=== PATIENT | female | born 1980 | race Caucasian/White ===

== ENCOUNTER 2022-10-17 11:52 | Emergency (ER) | payer OTHER ==
[2022-10-17 11:58] VITALS: RESP 18; TEMP 98
--- NOTE | 2022-10-17 12:22 | ED ---
Fall HPI - General Chief Complaint: Fall Stated Complaint: Left Hip Injury, Fall Time Seen by Provider: 10/17/22 12:02 Source: patient, family (sister), RN notes reviewed Mode of arrival: wheelchair - History of Present Illness Initial Comments: Patient is a 42-year-old female presenting to the emergency room with her sister with complaints of a fall and left hip pain from the fall. She advised the triage nurse that she tripped and fell in the yard just prior to her arrival ho wever further investigation revealed that the patient has been drinking and is still currently intoxicated and apparently fell at some time during the night last night. Exact details of the fall cannot be or cold her she is unsure of any loss of consciousness or head trauma though she is adamant she only had her left hip. She denies any pain or injury to any other extremity. She reports painful but full range of motion to the left hip. She has some nausea and vomiting related to alcohol intoxication however she denies any abdominal pain not directly related to vomiting. Patient is evasive and a poor historian but reports no significant past medical history or regular medication usage. Location: abdomen - Related Data Home Medications Medication Instructions Recorded Confirmed No Known Home Medications 10/04/14 10/04/14 Allergies Allergy/AdvReac Type Severity Reaction Status Date / Time Penicillins Allergy Swelling Verified 10/17/22 11:58 Review of Systems ROS Statement: Those systems with pertinent positive or pertinent negative responses have been documented in the HPI. ROS Other: All systems not noted in ROS Statement are negative. Past Medical History Past Medical History: No Reported History History of Any Multi-Drug Resistant Organisms: None Reported Past Surgical History: Orthopedic Surgery Past Psychological History: No Psychological Hx Reported Past Alcohol Use History: None Reported, Occasional Past Drug Use History: None Reported General Exam General appearance: alert, in no apparent distress, appears intoxicated Head exam: Present: atraumatic, normocephalic, normal inspection Eye exam: Present: normal appearance, PERRL, EOMI. Absent: scleral icterus, conjunctival injection, nystagmus, periorbital swelling ENT exam: Present: normal exam, normal oropharynx, mucous membranes moist Neck exam: Present: normal inspection, full ROM. Absent: tenderness Respiratory exam: Present: normal lung sounds bilaterally. Absent: respiratory distress, wheezes, rales, rhonchi, stridor Cardiovascular Exam: Present: normal rhythm, tachycardia, normal heart sounds. Absent: systolic murmur, diastolic murmur, rubs, gallop, clicks GI/Abdominal exam: Present: soft, normal bowel sounds. Absent: distended, tenderness, guarding, rebound, rigid Left Hip exam: Present: full ROM, tenderness. Absent: swelling, abrasion, laceration, deformity, crepitus, dislocation, erythema, external rotation, inte rnal rotation, shortening, pelvic stability Neurovascular tendon exam: Present: no vascular compromise Gait: observed and limited by pain Back exam: Present: normal inspection Neurological exam: Present: alert, CN II-XII intact Expanded Neurological exam: Present: memory loss-recent event Devika Total: 15 Psychiatric exam: Present: other Course Vital Signs 10/17/22 10/17/22 11:54 15:07 Temperature 98.0 F Pulse Rate 136 H 78 Respiratory 18 18 Rate Blood Pressure 137/81 113/76 O2 Sat by Pulse 99 96 Oximetry Medical Decision Making - Medical Decision Making Was pt. sent in by a medical professional or institution ([facility], RN [facility]ENT[facility], urgent care, hospital, or half-way...) When possible be specific @ -No Did you speak to anyone other than the patient for history (EMS, parent, family, police, friend...)? What history was obtained from this source @ -Yes, sister at bedside providing some details regarding presenting illness. Did you review nursing and triage notes (agree or disagree)? Why? @ -I reviewed and agree with nursing and triage notes Were old charts reviewed (outside hosp., previous admission, EMS record, old EKG, old radiological studies, urgent care reports/EKG's, half-way records)? Report findings @ -No old charts were reviewed Differential Diagnosis (chest pain, altered mental status, abdominal pain women, abdominal pain men, vaginal bleeding, weakness, fever, dyspnea, syncope, headache, dizziness, GI bleed, back pain, seizure, CVA, palpatations, mental health, musculoskeletal)? @ -Differential Musculoskeletal Muscular strain, contusion, ligament sprain, fracture, arthritis, septic arthritis, bursitis, cellulitis, muscle spasm, nerve compression, DVT, arterial occlusion, herpes zoster, electrolyte abnormality, tumor.... This is not meant to be in all inclusive list EKG interpreted by me (3pts min.). @ -Sinus tachycardia, ventricular rate 109 bpm, NJ interval 140 ms, QRS duration 83 ms, QT/QTC 313/377 ms, PRT axes 127, 95, 6 X-rays interpreted by me (1pt min.). @ -Left hip and pelvis x-ray: No hip fracture or subluxation. No fracture of the pelvis CT interpreted by me (1pt min.). @ -CT of brain and cervical spine: No acute intracranial process. No mass, hemorrhage or shift. No cervical or spine fracture or subluxation. U/S interpreted by me (1pt. min.). @ -None done What testing was considered but not performed or refused? (CT, X-rays, U/S, labs)? Why? @ -None What meds were considered but not given or refused? Why? @ -None Did you discuss the management of the patient with other professionals (professionals i.e. , PA, RN MENTAL [facility], lab, RT, psych nurse, nephrology social worker, machine whitener, teacher, chief quality officer, caser)? Give summary @ -No Was smoking cessation discussed for >3mins.? @ -No Was critical care preformed (if so, how long)? @ -No Were there social determinants of health that impacted care today? How? (Homelessness, low income, unemployed, alcoholism, drug addiction, transportation, low edu. Level, literacy, decrease access to med. care, custodial, rehab)? @ -No Was there de-escalation of care discussed even if they declined (Discuss DNR or withdrawal of care, Hospice)? DNR status @ -No What co-morbidities impacted this encounter? (DM, HTN, Smoking, COPD, CAD, Cancer, CVA, ARF, Chemo, Hep., AIDS, mental health diagnosis, sleep apnea, morbid obesity)? @ -None Was patient admitted / discharged? Hospital course, mention meds given and route, prescriptions, significant lab abnormalities, going to OR and other pertinent info. @ -2-year-old female presenting to the emergency room with her sister with complaints of a fall and left hip pain from the fall. She advised the triage nurse that she tripped and fell in the yard just prior to her arrival however further investigation revealed that the patient has been drinking and is still currently intoxicated and apparently fell at some time during the night last night. Exact details of the fall cannot be or cold her she is unsure of any loss of consciousness or head trauma though she is adamant she only had her left hip. EKG completed by triaging provider demonstrates sinus tachycardia will give 1 L of IV fluids due to sinus tachycardia. Will give Toradol for pain. Will obtain laboratory studies of CBC, CMP and serum alcohol level. Due to alcohol intoxication and unreliable accounts of the event will obtain CT of the head and cervical spine along with x-ray of the left hip and pelvis. Pain and tachycardia improved with IV hydration and Toradol. Hip and Pelvis without any acute osseous process. CT of the brain and cervical spine without any acute intracranial or cervical spine processes. CBC unremarkable. CMP demonstrates elevated glucose at 244 otherwise no abnormalities including normal renal function. Serum alcohol level elevated but below level requiring hospitalization for intoxication at 91. Patient with local hazmat driver home of her sister at bedside. Advised no indication for any further workup at this time. Questions and concerns answered. Return parameters to the emergency room discussed. Will discharge home in stable condition with her sister escorting her home status post fall with acute alcohol intoxication advising follow-up with primary care provider. Undiagnosed new problem with uncertain prognosis? @ -No Drug Therapy requiring intensive monitoring for toxicity (Heparin, Nitro, Insulin, Cardizem)? @ -No Were any procedures done? @ -No Diagnosis/symptom? @ -Fall Acute, or Chronic, or Acute on Chronic? @ -Acute Uncomplicated (without systemic symptoms) or Complicated (systemic symptoms)? @ -Uncomplicated Side effects of treatment? @ -none Exacerbation, Progression, or Severe Exacerbation] @ -no Poses a threat to life or bodily function? @ -no Diagnosis/symptom? @ -Alcohol intoxication Acute, or Chronic, or Acute on Chronic? @ -Acute Uncomplicated (without systemic symptoms) or Complicated (systemic symptoms)? @ -Uncomplicated Side effects of treatment? @ -none Exacerbation, Progression, or Severe Exacerbation] @ -no Poses a threat to life or bodily function? @ -no Case discussed with Dr. Johnson. - Lab Data Result diagrams: 10/17/22 12:38 10/17/22 12:38 Lab Results 10/17/22 10/17/22 Range/Units 12:38 12:38 WBC 7.0 (3.8-10.6) k/uL RBC 4.88 (3.80-5.40) m/uL Hgb 15.8 (11.4-16.0) gm/dL Hct 44.8 (34.0-46.0) % MCV 91.7 (80.0-100.0) fL MCH 32.3 (25.0-35.0) pg MCHC 35.2 (31.0-37.0) g/dL RDW 12.3 (11.5-15.5) % Plt Count 247 (150-450) k/uL MPV 7.9 Neutrophils % 69 % Lymphocytes % 22 % Monocytes % 6 % Eosinophils % 1 % Basophils % 1 % Neutrophils # 4.9 (1.3-7.7) k/uL Lymphocytes # 1.5 (1.0-4.8) k/uL Monocytes # 0.4 (0-1.0) k/uL Eosinophils # 0.0 (0-0.7) k/uL Basophils # 0.0 (0-0.2) k/uL Sodium 137 (137-145) mmol/L Potassium 4.3 (3.5-5.1) mmol/L Chloride 101 (98-107) mmol/L Carbon Dioxide 25 (22-30) mmol/L Anion Gap 11 mmol/L BUN 8 (7-17) mg/dL Creatinine 0.60 (0.52-1.04) mg/dL Est GFR (CKD-EPI)AfAm >90 (>60 ml/min/1.73 sqM) Est GFR (CKD-EPI)NonAf >90 (>60 ml/min/1.73 sqM) Glucose 244 H (74-99) mg/dL Calcium 9.3 (8.4-10.2) mg/dL Total Bilirubin 0.4 (0.2-1.3) mg/dL AST 24 (14-36) U/L ALT 18 (4-34) U/L Alkaline Phosphatase 83 (38-126) U/L Total Protein 7.7 (6.3-8.2) g/dL Albumin 4.5 (3.5-5.0) g/dL Serum Alcohol 91 mg/dL Disposition Clinical Impression: Fall, Alcohol intoxication Disposition: HOME SELF-CARE Condition: Stable Instructions (If sedation given, give patient instructions): Fall Prevention (ED) Additional Instructions: Please return to the Emergency Department if symptoms worsen or any other concerns. Utilize Tylenol or Motrin [id number] as needed for pain. Please follow-up with your primary care provider. Is patient prescribed a controlled substance at d/c from ED?: No Referrals: None,Stated [Primary Care Provider] - 1-2 days Time of Disposition: 14:47
--- NOTE | 2022-10-17 12:58 | CT ---
EXAMINATION TYPE: CT brain cspine wo con CT DLP: 1392 mGycm, Automated exposure control for dose reduction was used. DATE OF EXAM: 10/17/2022 12:50 PM COMPARISON: None.. CLINICAL INDICATION:Female, 42 years old with history of fall with acute intoxication; pain after fal l TECHNIQUE: Brain: Multiple axial CT images of the brain were obtained without IV contrast. Cspine: Axial CT images from the skull base to the inferior aspect of T2 we obtained without intraven ous contrast. Coronal and sagittal reformatted images were also reviewed. FINDINGS: Brain: Extra-axial spaces: No abnormal extra-axial fluid collections. Ventricular system: Within normal limits Cerebral parenchyma: No acute intraparenchymal hemorrhage or mass effect. The waller-white junction is well differentiated. Cerebellum: Unremarkable. Mass effect: No evidence of midline shift. Intracranial vasculature: unremarkable Soft tissues: Normal. Calvarium/osseous structures: No depressed skull fracture. Paranasal sinuses and mastoid air cells: Mild scattered mucosal thickening and or secretions. Visualized orbits: Orbital contents are intact. Cervical spine: Fracture: None. Osseous structures: Partial fusion of the C3-C4 vertebral bodies. Fusion of the bilateral C3-C4 facet joints. Vertebral alignment: Straightening of the cervical spine which may be due to patient position versus muscle spasm. Spinal canal/Neural Foramina: Mild degenerative disc disease at C4-C5 with disc space narrowing, endp late spurs and 20 intravenously to C6. No evidence for significant neural foraminal stenosis. Neck soft tissues: Prevertebral soft tissues are within normal limits. Other: The airway is patent. The lung apices are clear. IMPRESSION: 1. No acute intracranial process. 2. Mild paranasal sinus disease. 3. No evidence of cervical spine fracture. 4. Mild degenerative disc disease at C4-C5.
--- NOTE | 2022-10-17 13:07 | XR ---
EXAMINATION TYPE: XR Hip LT and AP Pelvis DATE OF EXAM: 10/17/2022 1:01 PM INDICATION: Patient age:Female; 42 years old; Reason for study: fall; PH[facility]. COMPARISON: None. TECHNIQUE: The left hip was examined in the frontal and lateral projections and a AP pelvis. FINDINGS: No evidence of any acute osseous pathology, joint dislocation, or soft tissue swelling. Sev eral pelvic phleboliths. IMPRESSION: No acute osseous pathology.
[2022-10-17] MEDS ORDERED: SODIUM CHLORIDE 0.9% 1,000 ML IV STA (13:12)
[2022-10-17] MEDS ORDERED: KETOROLAC 15 MG/ML 1 ML VIAL IVP STA (13:12)
[2022-10-17 13:17] LABS: Basophils % (A) 1 %; Eosinophils % (A) 1 %; HCT 44.8 % (34.0-46.0); HGB 15.8 gm/dL (11.4-16.0); Lymphocytes # (A) 1.5 k/uL (1.0-4.8); Lymphocytes % (A) 22 %; MCH 32.3 pg (25.0-35.0); MCHC 35.2 g/dL (31.0-37.0); MCV 91.7 fL (80.0-100.0); Mean Platelet Volume 7.9; Monocytes # (A) 0.4 k/uL (0-1.0); Monocytes % (A) 6 %; Neutrophils # (A) 4.9 k/uL (1.3-7.7); Neutrophils % (A) 69 %; Platelet Count 247 k/uL (150-450); RBC 4.88 m/uL (3.80-5.40); RDW 12.3 % (11.5-15.5)
[2022-10-17 13:26] LABS: ALT 18 U/L (4-34); AST 24 U/L (14-36); African American GFR (CKD) >90 (>60 ml/min/1.73 sqM); Albumin 4.5 g/dL (3.5-5.0); Alkaline Phosphatase 83 U/L (38-126); Anion Gap 11 mmol/L; Blood Urea Nitrogen 8 mg/dL (7-17); Calcium 9.3 mg/dL (8.4-10.2); Carbon Dioxide 25 mmol/L (22-30); Chloride 101 mmol/L (98-107); Glucose 244 mg/dL (74-99); Non-African American GFR(CKD) >90 (>60 ml/min/1.73 sqM); Potassium 4.3 mmol/L (3.5-5.1); Sodium 137 mmol/L (137-145); Total Bilirubin 0.4 mg/dL (0.2-1.3); Total Protein 7.7 g/dL (6.3-8.2)
[2022-10-17 13:33] LABS: Alcohol 91 mg/dL
[2022-10-17 15:10] VITALS: BP 113/76; PULSE 78
== END 2022-10-17 15:14 | disposition home or self-care (01) ==
LOC: EC 11:52
DX: M50.321 Other cervical disc degeneration at C4-C5 level (principal); F10.129 Alcohol abuse with intoxication, unspecified; Z88.0 Allergy status to penicillin; W01.0XXA Fall on same level from slipping, tripping and stumbling without subsequent striking against object, initial encounter; Y90.4 Blood alcohol level of 80-99 mg/100 ml
CPT/HCPCS: 36415; 93005; 80053; 85025; 80320; 73502; 72125; 70450; 99284; 96374; 96361; J1885